=== PATIENT | male | born 1945 | race Caucasian/White ===

== ENCOUNTER → 2022-09-13 12:57 | Outpatient (BNVA) | payer OTHER, SELFPAY | PROVIDERS: Visit Provider Internal Medicine | DX: I73.9 Peripheral vascular disease, unspecified (principal); E11.8 Type 2 diabetes mellitus with unspecified complications; I10 Essential (primary) hypertension; Z87.891 Personal history of nicotine dependence; Z79.82 Long term (current) use of aspirin | CPT/HCPCS: 93005; 99204 ==

== ENCOUNTER 2022-09-30 06:33 | Outpatient (CLI) | payer OTHER, SELFPAY ==
--- NOTE | 2022-09-30 07:00 | CT_ITS ---
WS: [id number] CTA ABDOMINAL AORTA WITH RUNOFF TECHNIQUE: Contrast enhanced CTA of the abdominal aorta with bilateral lower extremity runoff. Multip lanar reformatted images were obtained. MIP reformats were also reviewed. CLINICAL INFORMATION: PVD COMPARISON: None. DLP: 591.[address] scans at [facility] use at least one of these dose optimization techniques: automated e xposure control; mA and/or kV adjustment per patient size (includes targeted exams where dose is matc hed to clinical indication); or iterative reconstruction. FINDINGS: Normal caliber abdominal aorta. No abdominal aortic aneurysm. Moderate calcification abdomi nal aorta. Mild stenosis distal abdominal aorta.. Celiac and SMA are patent. Proximal renal arteries are patent. NNAMDI is patent. Cholelithiasis. Urine distended bladder. Prominent prostate measuring 4.2 CM. Lung bases are well aerated. Mild hepatomegaly. Cholelithiasis. Small esophageal hiatal hernia. Letitia l portal vein and splenic vein. Adrenal glands are normal. Bilateral renal atrophy. Normal renal pare nchyma enhancement. Adrenal glands are normal. RIGHT: Mild stenosis RIGHT common iliac artery origin. External iliac artery is patent. Densely calci fied internal iliac artery. Common femoral artery is patent. Mild stenosis of the SFA origin. Deep fe moral artery is patent. Mild segmental stenosis SFA. Moderate to severe stenosis distal superficial f emoral artery in the mid thigh. Only focal severe stenosis in the distal thigh near the adductor hiat us. Short segment occlusion of the proximal popliteal artery which reconstitutes above the knee. Mult ifocal moderate stenosis in the remaining popliteal artery. Popliteal artery is patent to the trifurc ation. Moderate to severe stenosis tibioperoneal trunk. Three-vessel runoff to the ankle. Densely soni cified posterior tibial artery. Tiny peroneal artery. LEFT: Common iliac artery is patent. External and internal iliac arteries are patent. Common femoral artery is patent. Deep femoral artery is patent. The provisional femoral artery is patent to the addu ctor hiatus. Moderate stenosis at the distal SFA adductor hiatus. Mild to moderate segmental stenosis in the popliteal artery which remains patent. Popliteal artery is patent to the trifurcation. Modera te stenosis of the tibioperoneal trunk. Dominant Two-vessel runoff with no significant flow in the pr oximal anterior tibial artery. This reconstitutes at the ankle via collateral flow. Poor flow in the peroneal artery at the ankle. CT/CT angio abd aorta runof [id number] IMPRESSION: 1. RIGHT:Common femoral artery is patent. Mild stenosis of the SFA origin. . M oderate to severe stenosis distal superficial femoral artery in the mid thigh. Severe stenosis in the distal thigh near the adductor hiatus. Short segment occ lusion of the proximal popliteal artery which reconstitutes above the knee. Mul tifocal moderate stenosis in the remaining popliteal artery. Popliteal artery i s patent to the trifurcation. Moderate to severe stenosis tibioperoneal trunk. Limited Three-vessel runoff to the ankle. Densely calcified posterior tibial ar bear. Tiny peroneal artery. 2. LEFT: Common femoral artery is patent. Superficial femoral artery is patent to the adductor hiatus. Moderate stenosis at the distal SFA/adductor hiatus. M ild to moderate segmental stenosis in the popliteal artery which remains patent . Popliteal artery is patent to the trifurcation. Moderate stenosis of the tibi operoneal trunk. Dominant Two-vessel runoff with no significant flow in the pro ximal anterior tibial artery. This reconstitutes at the ankle via collateral fl ow. Poor flow in the peroneal artery at the ankle. 3. Normal caliber infrarenal abdominal aorta. No aneurysm. Mild stenosis in th e distal aorta due to atheromatous disease. 4. Celiac and SMA are patent. Proximal renal arteries are patent. NNAMDI is paten t. 5. Cholelithiasis. 6. Enlarged prostate measuring 4.2 CM. Recommend correlation PSA. Evidence of bladder outlet obstruction. Small cystocele.
[2022-09-30] MEDS: iohexol 350 mg/mL 500 mL Btl (per mL) IV (07:25)
[2022-09-30 07:32] LABS: Blood Urea Nitrogen 23 mg/dL (8-23)
== END 2022-09-30 06:34 | disposition home or self-care (01) ==
LOC: RAD 06:36
PROVIDERS: Visit Provider Internal Medicine
DX: I73.9 Peripheral vascular disease, unspecified (principal); N40.0 Benign prostatic hyperplasia without lower urinary tract symptoms; K80.20 Calculus of gallbladder without cholecystitis without obstruction; I70.0 Atherosclerosis of aorta
CPT/HCPCS: 75635; 82565; 84520; Q9967

== ENCOUNTER → 2022-11-22 13:04 | Outpatient (BNVA) | payer OTHER, SELFPAY | PROVIDERS: Visit Provider Internal Medicine | DX: I73.9 Peripheral vascular disease, unspecified (principal); E11.8 Type 2 diabetes mellitus with unspecified complications; I10 Essential (primary) hypertension; Z87.891 Personal history of nicotine dependence; Z79.82 Long term (current) use of aspirin; Z79.84 Long term (current) use of oral hypoglycemic drugs | CPT/HCPCS: 99214 ==

== ENCOUNTER 2023-01-13 10:05 | Emergency (ER) | payer OTHER, SELFPAY ==
[2023-01-13] VITALS (7 sets, daily range): BP systolic 122–158; BP diastolic 66–85; PULSE 56–78; RESP 18; TEMP 36.8; O2SAT 97–99; BMI 26.4
--- NOTE | 2023-01-13 10:47 | ECG_ITS ---
[facility] Test Date: 2023-01-13 Pat Name: Ti Ray Department: Room: Gender: Male [employer]: : 1945 Requested By: Pavel Bernal Order Number: [id number] Rosio MD: Blake Spears M.D. Measurements Intervals [place] Rate: 65 P: 65 DE: 205 QRS: -52 QRSD: 160 T: -3 QT: 444 QTc: 464 Interpretive Statements SINUS RHYTHM RIGHT BUNDLE BRANCH BLOCK [120+ ms QRS DURATION, UPRIGHT V1, 40+ ms S IN I/aVL/V4/V5/V6] LEFT ANTERIOR FASCICULAR BLOCK [QRS AXIS <= -45, QR IN I, RS IN II] No previous ECG available for comparison Electronically Signed On 01-13-2023 13:06:37 CDT by Blake Spears M.D. [id number]
--- NOTE | 2023-01-13 10:47 | ED_ITS ---
HPI - Recheck/Abnormal Lab/Rx General: Chief Complaint: Recheck/Abnormal Lab/Rx Stated Complaint: abnormal Labs Time Seen by Provider: 01/13/23 10:07 History of Present Illness: Patient presents to the ER with complaints of low potassium. [facility] routine labs drawn and it showed a potassium of 2.2. They gave patient oral potassium and IV potassium and recheck today did not change. They told the patient to come here for further evaluation and treatment. Patient is denying any complaints at this time. Patient is on a diuretic of lisinopril hydrochlorothiazide. Review of Systems General: Reports: 10 or more systems reviewed and unremarkable except in HPI and below PFSH ED PFSH: Medical History Essential (primary) hypertension Type 2 diabetes mellitus with unspecified complications Social History Smoking and tobacco status: former smoker Physical Exam Const: COMMON NORMALS: no acute distress, average body habitus, patient oriented x3, no limitations, healthy appearing, alert and well nourished HENMT: COMMON NORMALS: normocephalic, atraumatic, hearing grossly normal bilaterally, external ears normal, Normal external nose present and moist oral mucous membranes HEAD & SCALP: normocephalic and atraumatic NOSE: Normal external nose present EXTERNAL EAR: Yes external ears normal Eye: COMMON NORMALS: Equal, round and reactive pupils present, EOMs intact bilaterally, conjunctivae normal and no scleral icterus CONJUNCTIVA: Yes conjunctivae normal PUPIL: Yes Equal, round and reactive pupils present Neck/C-Spine: COMMON NORMALS: full ROM, no lymphadenopathy, supple, no meningeal signs, no JVD and Thyroid normal THYROID: Thyroid normal Lymph: LYMPHATIC: no lymphadenopathy noted Chest: COMMONS NORMALS: normal inspection of the chest and normal palpation of entire chest wall Resp: COMMON NORMALS: normal respiratory effort, No retractions, No use of accessory muscles and clear to auscultation bilaterally AUSCULTATION: clear to auscultation bilaterally Cardio: COMMON NORMALS: no JVD, regular rate, regular rhythm, S1 normal heart sound present, S2 normal heart sound present, No gallops present (Cardio), No clicks present (Cardio), No murmurs present (Cardio) and No rub (Cardio) RATE: regular rate RHYTHM: regular rhythm HEART SOUNDS: S1 normal heart sound present and S2 normal heart sound present GI: COMMON NORMALS: Normal to inspection, nondistended, normoactive bowel sounds present, Soft to palpation, non-tender, No hepatosplenomegaly present and no masses PALPATION: Yes Soft to palpation and Yes No hepatosplenomegaly present Neuro: COMMON NORMALS: patient oriented x3 SENSORIUM/ORIENTATION: Yes alert MENINGEAL SIGNS: Yes no meningeal signs Course Vital Signs: Vital signs: Vital Signs Temperature 98.2 F 01/13/23 10:22 Pulse Rate 64 01/13/23 15:31 Respiratory Rate 18 01/13/23 10:22 Blood Pressure 148/75 01/13/23 15:31 Pulse Oximetry 98 01/13/23 15:31 Oxygen Delivery Me thod Room Air 01/13/23 15:00 MDM - Recheck/Abnormal Lab/Rx Medical Decision Making Patient presents here with hypokalemia. Patient's potassium was 2.2 yesterday. We redrew the potassium today and it was 2.8. Patient was given 40 mEq orally and 20 mEq IV. The potassium was rechecked and it jumped to 3.9. Patient be discharged home on 20 mEq orally for the next 7 days and should have it rechecked in 1 week. Differential Diagnosis Unlikely encounter for medication refill, encounter for wound recheck, encounter for recheck of burn, encounter for removal of sutures or warfarin-induced coagulopathy Medical Records I reviewed the patient's medical records. Lab Data I reviewed the patient's lab results. 01/13/23 10:55 01/13/23 14:16 Laboratory Results WBC 5.7 10^3/uL (4.0-10.0) 01/13/23 10:55 RBC 4.01 10^6/uL (4.1-5.3) L 01/13/23 10:55 Hgb 11.4 g/dL (11.7-16.6) L 01/13/23 10:55 Hct 34.0 % (42.0-52.0) L 01/13/23 10:55 MCV 84.8 fl (80-94) 01/13/23 10:55 MCH 28.4 pg (28.0-34.0) 01/13/23 10:55 MCHC 33.5 g/dL (30.0-36.0) 01/13/23 10:55 RDW 14.3 % (12.1-15.1) 01/13/23 10:55 Plt Count 185 10^3/cmm (130-400) 01/13/23 10:55 MPV 9.2 fL (7.4-10.4) 01/13/23 10:55 Neut % (Auto) 64.3 % 01/13/23 10:55 Lymph % (Auto) 24.0 % 01/13/23 10:55 [place] % (Auto) 6.0 % 01/13/23 10:55 Eos % (Auto) 4.4 % 01/13/23 10:55 Baso % (Auto) 0.9 % 01/13/23 10:55 Neut # (Auto) 3.68 10^3/uL (1.8-7.7) 01/13/23 10:55 Lymph # (Auto) 1.4 10^3/uL (0.8-4.8) 01/13/23 10:55 [place] # (Auto) 0.3 10^3/uL (0.2-0.9) 01/13/23 10:55 Eos # (Auto) 0.3 10^3/uL (0.0-0.8) 01/13/23 10:55 Baso # (Auto) 0.1 10^3/uL (0.0-0.1) 01/13/23 10:55 Nucleated RBC % (auto) 0 % 01/13/23 10:55 Nucleated RBCs # 0.0 /100WBC 01/13/23 10:55 Sodium 143 mmol/L (136-145) 01/13/23 14:16 Potassium 3.9 mmol/L (3.5-5.1) 01/13/23 14:16 Chloride 113 mmol/L (98-107) H 01/13/23 14:16 Carbon Dioxide 20 mmol/L (22-29) L 01/13/23 14:16 Anion Gap 13.9 (5-19) 01/13/23 14:16 BUN 17 mg/dL (8-23) 01/13/23 14:16 Creatinine 1.2 mg/dL (0.7-1.2) 01/13/23 14:16 GFR Calculation Not Reportable 01/13/23 14:16 Glucose 105 mg/dL (65-115) 01/13/23 14:16 Calculated Osmolality 298 mOsm/kg (285-295) H 01/13/23 14:16 Calcium 8.8 mg/dL (8.5-10.5) 01/13/23 14:16 Total Bilirubin 0.4 mg/dL (0.15-1.2) 01/13/23 10:55 AST 14 U/L (0-40) 01/13/23 10:55 ALT 12 U/L (0-41) 01/13/23 10:55 Alkaline Phosphatase 48 U/L (40-130) 01/13/23 10:55 Total Protein 6.6 g/dL (6.6-8.7) 01/13/23 10:55 Albumin 3.9 g/dL (3.5-5.2) 01/13/23 10:55 Globulin 2.7 g/dL (1.3-4.6) 01/13/23 10:55 EKG Data EKG 1: I personally reviewed and interpreted this EKG as follows: EKG interpretation date: 01/13/23 EKG interpretation time: 10:47 Prior EKG tracings: not available for review Interpretation: EKG showed ventricular rate 65 bpm, MA interval 205, QRS 160, QTc of 456, sinus rhythm with a right bundle branch block, left anterior fascicular block, Discharge Plan Discharge Patient Disposition: Home Clinical Impression: Acute hypokalemia Condition: Stable Prescriptions: New potassium chloride 20 mEq tablet extended release 20 meq PO DAILY Qty: 7 0RF No Action finasteride 5 mg tablet 5 mg PO QAM pantoprazole 40 mg tablet,delayed release (DR/EC) 40 mg PO QAM rosuvastatin 10 mg tablet 10 mg PO QPM tamsulosin [Flomax] 0.4 mg capsule 0.4 mg PO QPM aspirin 81 mg tablet,delayed release (DR/EC) 81 mg PO BEDTIME cholecalciferol (vitamin D3) 50 mcg (2,000 unit) capsule 50 mcg PO DAILY cilostazol 100 mg tablet 100 mg PO BID Qty: 180 3RF lisinopril 40 mg Tablet 40 mg PO BEDTIME insulin glargine 100 unit/mL (3 mL) Insulin Pen 10 unit SUBCUT BEDTIME Rx Instructions: [facility] empagliflozin 25 mg Tablet 25 mg PO QAM Balance Of Nature Fruits 1 tab PO BID Balance Of Nature Veggies 1 tab PO BID Discharge Orders: Discharge ED (Routine); Ordered 01/13/23 Ordered By: Pavel Bernal Patient Instructions: Hypokalemia Activity Restrictions/Additional Instructions: Please take your potassium as directed for the next 7 days. Please follow-up with your PCP within the next 7 to 10 days for recheck of your potassium. Coding Level of Care Code ED Physical Science Technician for Jean Claude Gunn
[2023-01-13 11:04] LABS: Basophils # 0.1 10^3/uL (0.0-0.1); Basophils % 0.9 %; Eosinophils # 0.3 10^3/uL (0.0-0.8); Eosinophils % 4.4 %; Hemoglobin 11.4 g/dL (11.7-16.6); Lymphocytes # 1.4 10^3/uL (0.8-4.8); Mean Corpuscular HGB Conc 33.5 g/dL (30.0-36.0); Mean Corpuscular Hemoglobin 28.4 pg (28.0-34.0); Mean Corpuscular Volume 84.8 fl (80-94); Mean Platelet Volume 9.2 fL (7.4-10.4); Monocytes # 0.3 10^3/uL (0.2-0.9); Neutrophils # 3.68 10^3/uL (1.8-7.7); Neutrophils % 64.3 %; Nucleated Red Blood Cells % 0 %; Platelet Count 185 10^3/cmm (130-400); Red Blood Count 4.01 10^6/uL (4.1-5.3); Red Cell Distribution Width 14.3 % (12.1-15.1); White Blood Count 5.7 10^3/uL (4.0-10.0)
[2023-01-13 11:26] LABS: Alanine Aminotransferase 12 U/L (0-41); Albumin Level 3.9 g/dL (3.5-5.2); Alkaline Phosphatase 48 U/L (40-130); Anion Gap 14.8 (5-19); Aspartate Amino Transferase 14 U/L (0-40); Blood Urea Nitrogen 18 mg/dL (8-23); Calcium 8.9 mg/dL (8.5-10.5); Carbon Dioxide 20 mmol/L (22-29); Chloride 110 mmol/L (98-107); Globulin 2.7 g/dL (1.3-4.6); Glucose 211 mg/dL (65-115); Osmolality Calculated 302 mOsm/kg (285-295); Sodium 142 mmol/L (136-145); Total Bilirubin 0.4 mg/dL (0.15-1.2); Total Protein 6.6 g/dL (6.6-8.7)
[2023-01-13 11:28] LABS: Potassium 2.8 mmol/L (3.5-5.1)
[2023-01-13] MEDS: potassium chloride ER 20 mEq Tablet 40 MEQ PO (11:49)
[2023-01-13] MEDS: lidocaine 1% 5 ML in potassium chloride premix 100 ML 52.5 ML IV (11:50)
--- NOTE | 2023-01-13 12:13 | PC.PHAR ---
Addendum entered by Florence Weaver 01/13/23 12:18: [facility] med [facility] had pt got kcl 40meq yesterday 01/12/23 Original Note: pt states he takes care of his own medications-pt brought [facility] a [facility] the [facility]-pt states he hasnt started or gotten the insulin glargine pen 10 units hs -pt states he just started taking balance of nature fruits and veggies 3 days ago-notes are made in the pharmacy comments
--- NOTE | 2023-01-13 12:50 | PC.NURSE ---
REPORT GIVEN TO [facility].
[2023-01-13 14:43] LABS: Anion Gap 13.9 (5-19); Blood Urea Nitrogen 17 mg/dL (8-23); Calcium 8.8 mg/dL (8.5-10.5); Carbon Dioxide 20 mmol/L (22-29); Chloride 113 mmol/L (98-107); Glucose 105 mg/dL (65-115); Osmolality Calculated 298 mOsm/kg (285-295); Potassium 3.9 mmol/L (3.5-5.1); Sodium 143 mmol/L (136-145)
--- NOTE | 2023-01-18 12:53 | DCPLANNER ---
oracle manager called patient due to no primary care physician - patient stated that he sees Mela [facility]rozco [facility] the [facility]
== END 2023-01-13 15:32 | disposition home or self-care (01) ==
PROVIDERS: Emergency Provider Emergency Medicine
DX: E87.6 Hypokalemia (principal)
CPT/HCPCS: 36415; 80048; 80053; 85025; 93005; 96365; 96366; 99284; J3480

== ENCOUNTER → 2023-11-21 13:21 | Outpatient (BNVA) | payer OTHER, SELFPAY | PROVIDERS: Visit Provider Internal Medicine | DX: E11.51 Type 2 diabetes mellitus with diabetic peripheral angiopathy without gangrene (principal); I10 Essential (primary) hypertension; Z87.891 Personal history of nicotine dependence; Z79.4 Long term (current) use of insulin | CPT/HCPCS: 99214 ==

== ENCOUNTER → 2024-11-19 13:27 | Outpatient (BNVA) | payer OTHER, SELFPAY | PROVIDERS: PCP Nurse Practitioner; Visit Provider Internal Medicine | DX: E11.51 Type 2 diabetes mellitus with diabetic peripheral angiopathy without gangrene (principal); I10 Essential (primary) hypertension; Z87.891 Personal history of nicotine dependence; Z79.4 Long term (current) use of insulin | CPT/HCPCS: 99213 ==

== ENCOUNTER 2025-01-08 08:12 | Outpatient (CLI) | payer OTHER, SELFPAY ==
--- NOTE | 2025-01-08 08:30 | USCV_ITS ---
Ti Ray Age: 79 Gender: M : 1945 Exam Date: 01/08/2025 08:40 Ordering Phys: Blake Spears M.D ([email or web address]) Technologist: ELMER Exam Location: [facility] [place] Indication: Murmur BP: 104 / 62 HR: 57 Rhythm: Sinus Technical Quality: Adequate MEASUREMENTS (Male / Female) Normal Values 2D ECHO LV Diastolic Diameter PLAX 4.7 cm 4.2 - 5.9 / 3.9 - 5.3 cm IVS Diastolic Thickness 1.0 cm 0.6 - 1.0 / 0.6 - 0.9 cm IVS Systolic Thickness 1.3 cm LVPW Diastolic Thickness 0.8 cm 0.6 - 1.0 / 0.6 - 0.9 cm LVPW Systolic Thickness 1.5 cm LVOT Diameter 2.1 cm LV Ejection Fraction 2D Teich 56.1 % LV Ejection Fraction MOD 4C 66.4 % LV Ejection Fraction MOD 2C 69.3 % LV Ejection Fraction 2C AL 68.8 % LA Diameter 3.9 cm RA Systolic Volume 4C AL 58.6 ml RA Systolic Volume 4C MOD 56.5 ml LA Sys Volume AL 50.6 cm cubed LA Sys Volume Index AL 25.2 cm cubed/m squared Aorta at Sinotubular Diameter 3.4 cm M-MODE LA Ao Ratio MM 1.4 AV Cusp Separation MM 1.3 cm DOPPLER AV Peak Velocity 110.0 cm/s LVOT Peak Velocity 79.0 cm/s AV Area Cont Eq vti 3.0 cm squared AV Area Cont Eq pk 2.5 cm squared MV Peak Velocity 98.0 cm/s MV Area PHT 3.3 cm squared Mitral E to A Ratio 0.6 TV Peak Velocity 169.5 cm/s TR Peak Velocity 232.0 cm/s TR Peak Gradient 21.5 mmHg TV Peak E Velocity 64.0 cm/s PV Peak Velocity 117.0 cm/s FINDINGS Left Ventricle Left ventricle normal size. LV systolic function is normal with EF of 55-60%. No regional wall motion abnormalities are seen. Grade 1 diastolic dysfunction. Right Ventricle Normal in size and function Right Atrium Normal in size Left Atrium Normal in size Mitral Valve Mild mitral annular calcification. Mild mitral regurgitation Aortic Valve Structurally normal aortic valve. No significant stenosis or regurgitation. Tricuspid Valve Mild tricuspid regurgitation. Pulmonary artery systolic pressure is normal. Pulmonic Valve Not well visualized Pericardium Normal Aorta Normal in size IVC Not well visualized CONCLUSIONS LV systolic function is normal with EF of 55-60% Grade 1 diastolic dysfunction Mild mitral regurgitation Mild tricuspid regurgitation No regional wall motion abnormalities. Blake Spears MD (Electronically Signed) Final Date: 23 January 2025 10:01 S
== END 2025-01-08 08:13 | disposition home or self-care (01) ==
PROVIDERS: PCP Nurse Practitioner; Visit Provider Internal Medicine
DX: R01.1 Cardiac murmur, unspecified (principal); R93.1 Abnormal findings on diagnostic imaging of heart and coronary circulation; I34.81 Nonrheumatic mitral (valve) annulus calcification; I34.0 Nonrheumatic mitral (valve) insufficiency; I07.1 Rheumatic tricuspid insufficiency
CPT/HCPCS: 93306

== ENCOUNTER → 2025-06-30 13:32 | Outpatient (BNVA) | payer OTHER, SELFPAY | PROVIDERS: PCP Nurse Practitioner; Visit Provider Internal Medicine | DX: R91.1 Solitary pulmonary nodule (principal); Z87.891 Personal history of nicotine dependence; R91.8 Other nonspecific abnormal finding of lung field | CPT/HCPCS: 99204; Q3014 ==

== ENCOUNTER 2025-07-11 12:32 | Outpatient (CLI) | payer OTHER, SELFPAY ==
--- NOTE | 2025-07-11 13:00 | PETR_ITS ---
PROCEDURE INFORMATION: Exam: PET/CT Skull Base to Mid-thigh Exam date and time: 07/11/2025 1:38 PM Age: 79 years old Clinical indication: Condition or disease; Condition/disease: Lung nodule LABS AND CLINICAL REPORTS: Glucose: 167 mg/dl Treatment strategy for malignancy (PET staging): Initial Staging (PI) TECHNIQUE: Imaging protocol: Following at least four-hour fasting and following the injection of radiopharmaceutical, low dose CT images were obtained. Then, PET images were obtained. Attenuation corrected images were constructed using the CT scan. Fused images of PET and CT were reviewed. The standardized uptake values (SUV) reported below are maximum values within a region of interest, expressed in gm/ml. Exam includes orbital meatal line to mid-thigh. SUV normalization method: BodyWeight Radiopharmaceutical: 11.1 mCi F-18 FDG (Fluorodeoxyglucose), IV. Time of imaging post radiopharmaceutical administration: 45 minutes Injection site: right ac COMPARISON: CT angio abd aorta runof [id number] 09/30/2022 7:34 AM FINDINGS: Brain: On the nondedicated limited brain images there is no abnormal distribution of the radiotracer in the smith and white matter. Pharynx: Normal distribution of the radiotracer in nasopharyngeal, and oropharyngeal structures. Larynx: Normal distribution of the radiotracer in laryngeal structures. Lungs, pleura and trachea: 1 cm left upper lobe nodule measures 14.1 SUV. There are calcified granulomas in the right middle lobe. No pleural effusion. Heart: Normal physiologic uptake. There is no cardiomegaly. Coronary artery calcification is present. There is no pericardial effusion. Mediastinal space: No abnormal uptake. There is a small hiatal hernia. Liver: Normal size without abnormal radiotracer uptake. Gallbladder and biliary ducts: No abnormal uptake. 8 mm calcified gallstone in the gallbladder. Pancreas: Normal distribution of radiotracer. Spleen: Slightly enlarged (13.3 cm) with small calcified granulomas without abnormal radiotracer uptake. Adrenal glands: No abnormal uptake. No nodules. Kidneys and ureters: Normal physiologic uptake. No hydronephrosis. Stomach and bowel: No abnormal uptake. No abnormal dilatation of the bowel. Liquid content in the left colon for clinical correlation with diarrhea. Vasculature: No abnormal uptake. No aortic aneurysm. Lymph nodes: No abnormal uptake. No lymphadenopathy in the head, neck, chest, abdomen, pelvis, and extremities. Sequela of exposure to granulomatous disease with calcified granulomas within normal-size right subcarinal and right hilar lymph nodes. Skeleton: No abnormal uptake in the visualized axial and appendicular skeleton. Soft tissues: No abnormal uptake in the visualized head, neck, chest, abdomen, pelvis, and extremities. METRICS: Mediastinal blood pool: Max SUV of 2.7, mean SUV of 2.3 Liver uptake: Max SUV of 3.4, mean SUV of 2.5. PET/PET skull to thigh INIT [id number] IMPRESSION: Intense uptake of 14.1 SUV within 1 cm left upper lobe nodule concerning for malignancy. No FDG avid locoregional or distant metastatic disease.
== END 2025-07-11 12:33 | disposition home or self-care (01) ==
LOC: RAD 12:32
PROVIDERS: Visit Provider Internal Medicine
DX: R91.8 Other nonspecific abnormal finding of lung field (principal)
CPT/HCPCS: 78815; A9552

== ENCOUNTER 2025-07-24 16:31 | Outpatient (CLI) | payer OTHER, SELFPAY ==
--- NOTE | 2025-07-24 17:15 | CT_ITS ---
WS: [id number] CT chest ION (PULM ONLY) [id number] HISTORY: Prior to 07/28/25 CT TECHNIQUE: Axial imaging performed through the thorax. Coronal and sagittal reformats are submitted. All CT scans at [facility] use at least one of these dose optimization techniques: automated exposure control; mA and/or kV adjustment per patient size (includes targeted exams where dose is matched to clinical indication); or iterative reconstruction. DLP: Not submitted COMPARISON: 07/26/2025, PET/CT 07/11/2025 Imaging performed of the chest for navigational bronchoscopy. Reidentified is the PET/CT positive spiculated nodule LEFT upper lobe measuring 8.6 mm. Nodule similar in size to 07/11/2025. Lungs are hyperinflated. A few granuloma. No pneumonia. CT/CT chest ION (PULM ONLY) [id number] IMPRESSION: Navigational bronchoscopy imaging provided. Reidentified is a LEFT upper lobe s piculated nodule.
== END 2025-07-24 16:32 | disposition home or self-care (01) ==
LOC: RAD 16:33
PROVIDERS: Visit Provider Internal Medicine
DX: R91.1 Solitary pulmonary nodule (principal)
CPT/HCPCS: 71250

== ENCOUNTER 2025-07-28 05:31 | Day surgery (SDC) | payer OTHER, SELFPAY ==
[2025-07-28] VITALS (10 sets, daily range): BP systolic 136–167; BP diastolic 57–78; PULSE 52–69; RESP 18; TEMP 36.1–36.2; O2SAT 92–100; BMI 29.0
--- NOTE | 2025-07-28 05:59 | ANES.PREANE2 ---
Pre-Anesthetic Assessment Height/Weight: Height 5 ft 6 in Preop Diagnosis: Lung nodule Operation Date: 07/28/25 07:00 Proposed Procedures p Ion Robotic Assisted Bronchoscopy - Robotic Bronch W/ EBUS(Not Applicable) - MD darion Lopez Ebus(Not Applicable) - MD darion Lopez Bronchoscopy(Not Applicable) - Gume Kaur MD Was Beta Jose taken within 24 hours: N/A Was Clonidine taken within 24 hours: N/A Social No alcohol and No tobacco Quit smoking 20+ years ago Exam alert, oriented x 3, clear to auscultation bilaterally and regular rate & rhythm Airway Submandibular: within normal limits Cervical ROM: within normal limits Mallampati: Class II Comments: Comments: Edentulous Anesthetic Plan ASA status: 3 Anesthesia: General Other: No prior issues with anesthesia NPO since yesterday evening History of hypertension on lisinopril Type 2 diabetes without insulin Patient with a left upper lobe lung nodule Quit smoking 20+ years ago 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 Plan for GETA Medications/Allergies Home Medications ?Medication ?Instructions ?Recorded ?Confirmed ?Last Taken ?Type aspirin 81 mg tablet,delayed 81 mg PO BEDTIME 09/13/22 07/23/25 07/23/25 History release cholecalciferol (vitamin D3) 50 50 mcg PO DAILY 09/13/22 07/23/25 07/23/25 History mcg (2,000 unit) capsule finasteride 5 mg tablet 5 mg PO QAM 09/13/22 07/23/25 07/23/25 History pantoprazole 40 mg tablet,delayed 40 mg PO QAM 09/13/22 07/23/25 07/23/25 History release rosuvastatin 10 mg tablet 10 mg PO QPM 09/13/22 07/23/25 07/23/25 History tamsulosin 0.4 mg capsule (Flomax) 0.4 mg PO QPM 09/13/22 07/23/25 07/23/25 History cilostazol 100 mg tablet 100 mg PO BID #180 tabs 01/11/23 07/23/25 07/23/25 Rx empagliflozin 25 mg tablet 25 mg PO QAM 01/13/23 07/23/25 07/23/25 History lisinopril 40 mg tablet 40 mg PO BEDTIME 01/13/23 07/23/25 07/23/25 History Allergies Allergy/AdvReac Type Severity Reaction Status Date / Time No Known Allergies Allergy Verified 07/28/25 05:58 [facility] Anesthesia Medical History Lung nodule Essential (primary) hypertension Type 2 diabetes mellitus with unspecified complications Social History Smoking and tobacco/nicotine status: former use of tobacco/nicotine (6 ppd X 45 years. Quit in 1997) Data Anesthesia 07/28/25 06:08 07/28/25 06:08 Cardiac Studies: Echocardiogram 01/08/25
--- NOTE | 2025-07-28 06:16 | SC_ITS ---
WS: [id number] C ARM fluoroscopy for left upper lobe bronchoscopic biopsy, 07/28/2025 Clinical Data: IN OR 3 Comparison: None. Findings: Dr. Kaur performed bronchoscopic biopsy in the left upper lobe. SC/C-arm FL for Bronchoscopy Impression: Left upper lobe bronchoscopic biopsy.
[2025-07-28 06:29] LABS: Hematocrit 47.6 % (37-53); Hemoglobin 16.20 g/dL (11.27-16.99); Mean Corpuscular HGB Conc 34.0 g/dL (30-55); Mean Corpuscular Hemoglobin 29.7 pg (27-33); Mean Corpuscular Volume 87.2 fl (82-101); Nucleated Red Blood Cells % 0 %; Platelet Count 194 10^3/cmm (157-399); Red Blood Count 5.46 10^6/uL (3.85-5.65); White Blood Count 9.05 10^3/uL (3.29-11.43)
[2025-07-28 06:50] LABS: Anion Gap 15.6 (5-19); Blood Urea Nitrogen 44 mg/dL (8-23); Calcium 9.9 mg/dL (8.5-10.5); Carbon Dioxide 22 mmol/L (22-29); Chloride 103 mmol/L (98-107); Glucose 226 mg/dL (65-115); Osmolality Calculated 300 mOsm/kg (285-295); Potassium 4.6 mmol/L (3.5-5.1); Sodium 136 mmol/L (136-145)
[2025-07-28 06:56] LABS: INR 0.93 (0.8-1.2); Prothrombin Time 13.10 SECONDS (12.1-14.9)
--- NOTE | 2025-07-28 07:01 | W.PM.OPSUD ---
Surgery/Procedure H&P Update DATE OF PROCEDURE: July 28, 2025 DATE H&P PERFORMED: 06/30/25 H&P UPDATE INFORMATION: I have reviewed H&P completed within last 30 days, I have examined patient prior to procedure, No changes to prior documentation, Changes to prior documentation as noted here, H&P is in [facility] EMR on date indicated and Risks and benefits of the procedure reviewed PREOP DIAGNOSIS: Lung nodule PLANNED PROCEDURE: Surgery/Procedure H&P Update DATE OF PROCEDURE: 07/28/25 DATE H&P PERFORMED: 06/30/2025 CHANGES TO PREVIOUS DOCUMENTATION: Patient was seen and examined. No significant changes since I saw in the clinic. We will proceed with bronchoscopy as we planned. PREOP DIAGNOSIS: Lung nodule left upper lobe PRIMARY INDICATION FOR PROCEDURE: Lung nodule left upper lobe to rule out malignancy PLANNED PROCEDURE: Operation Date: 07/28/25 7 am Proposed Procedures Ion Robotic Assisted Bronchoscopy for lung nodule POSSIBLE Biopsy [id number], 87015, 87252, 80233, 70469, 198.4 - Gume Kaur MD Operation Date: 05/28/25 09:00 Proposed Procedures p Bronchoscopy [id number] [id number] [id number] 24791 75918 19466 43139 R91. - Gume Kaur MD s Ion Robotic Assisted Bronchoscopy - Gume Kaur MD s Ebus - Gume Kaur MD Operation Date: 07/28/25 07:00 Proposed Procedures p Ion Robotic Assisted Bronchoscopy - Robotic Bronch W/ EBUS(Not Applicable) - Gume Kaur MD s Ebus(Not Applicable) - Gume Kaur MD s Bronchoscopy(Not Applicable) - Gume Kaur MD
[2025-07-28] MEDS: EPINEPHrine 1 MG in sodium chloride 0.9% (100 ml) 19 ML 4 MG XX (08:00)
--- NOTE | 2025-07-28 08:16 | XR_ITS ---
WS: [id number] Portable AP upright chest, 07/28/2025 Clinical Data: POST ION IN PACU Comparison: None. Findings: No nodules, masses or effusions are seen. The heart is normal. The pulmonary vascularity is not increased. No pneumonia or pneumothorax is seen. The aortic arch and descending thoracic aorta show minimal tortuosity. Monitor leads are on the chest wall. XR/XR chest 1V portable [id number] Impression: Atherosclerosis.
--- NOTE | 2025-07-28 09:26 | ANE.PACU2 ---
Inpatient post-anesthesia follow up: Airway intact: Yes Vital signs: Temperature 97.0 F Pulse Rate 53 Respiratory Rate 18 Blood Pressure 136/57 Pulse Oximetry 96 Oxygen Delivery Me thod Room Air Oxygen Flow Rate 8 Fraction of Inspir ed Oxygen Hydration adequate: Yes Nausea and vomiting: No Pain level: 1 Mental status: Baseline
[2025-07-28 09:47] LABS: Cyto Order Verification Order Verified
--- NOTE | 2025-07-28 10:05 | W.PM.BPONFUL ---
Procedure: Flexible bronchoscopy with complete mediastinal staging Attending: Gume Kaur MD Indication: Left upper lobe nodule Anesthesia: General anesthesia per anesthesia team Procedure: Pre-Anesthesia Assessment Time-Out: Immediately before the procedure, a time-out was conducted to confirm patient identification, procedure details, consent, image labeling, and the need for prophylactic antibiotics. This was verified by the physician, nurse, anesthesiologist, and licensed occupational therapist. Outcome: The procedure was completed without difficulty, and the patient tolerated it well. Findings: A thorough airway exam was performed after passage of the bronchoscope. The trachea was anatomically normal. The right sided airway was anatomically normal without endobronchial lesions. No secretions. The left sided airway was anatomically normal without endobronchial lesions. No secretions. After confirming our location, we proceeded to sampling. Transbronchial biopsies of the lesion were performed using the core dx forceps. A total of 6 samples were obtained. (75466) Bronchoscopy with transbronchial needle aspiration biopsy, using floroscopy were performed. Total of 4 samples obtained.(72119) A bronchoalveolar lavage was performed of the lobe containing the target lesion with 40 mL of saline instilled and 10 mL of effluent returned. ([id number]) The prior bronchoscope was removed from the airway and the EBUS scope was inserted. A complete curvilinear EBUS procedure was performed of the following lymph nodes: Level 11R station was identified. No nodes met size criteria for biopsy. Level 4R station was identified. No nodes met size criteria for biopsy. Level 7 station was identified. No nodes met size criteria for biopsy. Level 4L station was identified. No nodes met size criteria for biopsy. Level 11L station was identified. No nodes met size criteria for biopsy. Following completion of all diagnostic and therapeutic procedures, hemostasis was verified. The scope was removed and procedure concluded. In summary, the following procedures were performed: 79821 BAL, (Bronchoalveolar Lavage), [id number] TBBX, (Transbronchial biopsies, first lobe), Bronchoscopy with transbronchial needle aspiration biopsy ([id number]) Gume Kaur MD Pulmonary and Critical Care
== END 2025-07-28 09:26 | disposition home or self-care (01) ==
PROVIDERS: Student in an Organized Health Care Education/Training Program; Visit Provider Internal Medicine
PROC: 0BJ08ZZ Inspection of Tracheobronchial Tree, Via Natural or Artificial Opening Endoscopic (ICD-10-PCS; CPT 31622; principal; 2025-07-28 07:00)
PROC: BB4BZZZ Ultrasonography of Pleura (ICD-10-PCS; 2025-07-28 07:00)
PROC: 0BJ08ZZ Inspection of Tracheobronchial Tree, Via Natural or Artificial Opening Endoscopic (ICD-10-PCS; CPT 31622; 2025-07-28 07:00)
DX: R91.1 Solitary pulmonary nodule (principal); I10 Essential (primary) hypertension; E11.9 Type 2 diabetes mellitus without complications; Z79.4 Long term (current) use of insulin; Z79.82 Long term (current) use of aspirin; K21.9 Gastro-esophageal reflux disease without esophagitis; Z87.891 Personal history of nicotine dependence
CPT/HCPCS: 31624; 31628; 36415; 71045; 76000; 80048; 85025; 85610; 87070; 87102; 87205; 87206; 88112; 88305; A9270; J0169; J1100; J2405; J2704; J3010; J3490; J7030; J9999